=== PATIENT | male | born 1960 | race Caucasian/White ===

== ENCOUNTER 2016-07-06 15:53 | Emergency (ER) | payer BC, OTHER ==
[2016-07-06 16:08] VITALS: BP 154/100
[2016-07-06] MEDS ORDERED: Bacitracin Oint 1 GM U/D Packet TOP ONE (16:21)
[2016-07-06] MEDS ORDERED: Lidocaine 1% 30 ML SDV INJECT ONE (16:21)
[2016-07-06] MEDS ORDERED: Diphtheria,Pertussis(Acell),Tetanus Vaccine 0.5 ML SDV IM ONE (16:23)
--- NOTE | 2016-07-06 16:24 | EDM.PDOC ---
[id number] CUT FINGER Time Seen by Provider: 07/06/16 16:21 Source: Reports: Patient History Limitations: Reports: No limitations - History of Present Illness INITIAL COMMENTS - FREE TEXT/NARRATIVE: This 56 yo male patient reports to the ED with a laceration to his left distal second finger. The patient reports he was cutting things with a knife when the knife slipped and cut his finger. Symptom Onset Date: 07/06/16 Timing: Reports: still present Location, Skin: Reports: upper extremity, left Quality: Reports: Ache, Dull Severity: moderate Known Identified Source: yes Place of Occurrence: home Sick Contact: no Associated Symptoms: Reports: no other symptoms Similar Symptoms Previously: no Recent Medical Care: no - Related Data Allergies Allergy/AdvReac Type Severity Reaction Status Date / Time Penicillins Allergy Intermediate Rash Verified 07/05/13 06:54 Home Meds: Ambulatory Orders Medication Instructions Recorded Confirmed Moexipril [Univasc] 15 mg PO DAILY 07/04/13 07/06/16 Simvastatin [Zocor] 40 mg PO BEDTIME 07/04/13 07/06/16 Past Medical History HEENT History: Reports: Impaired vision - Past Surgical History HEENT Surgical History: Reports: Tonsillectomy Social & Family History - Tobacco Use Smoking Status *Q: Never Smoker Second Hand Smoke Exposure: No - Caffeine Use Caffeine Use: Reports: Coffee, Soda - Alcohol Use Days Per Week of Alcohol Use: 0 - Recreational Drug Use Recreational Drug Use: No ED ROS GENERAL - Review of Systems Review Of Systems: ROS reveals no pertinent complaints other than HPI. ED EXAM, SKIN/RASH Exam: See Below Exam Limited By: No limitations General Appearance: alert, WD/WN, no apparent distress Eye Exam: bilateral eye: EOMI, normal inspection, PERRL Ears: normal external exam, normal canal, hearing grossly normal, normal TMs Nose: normal inspection, normal mucosa, no blood Throat/Mouth: Normal inspection, Normal lips, Normal teeth, Normal gums, Normal oropharynx, Normal voice, No airway compromise Head: atraumatic, normocephalic Neck: normal inspection, supple, non-tender, full range of motion Respiratory/Chest: no respiratory distress, lungs clear, normal breath sounds, no accessory muscle use, chest non-tender Cardiovascular: normal peripheral pulses, regular rate, rhythm, no edema, no gallop, no JVD, no murmur, no rub GI/Abdominal: normal bowel sounds, soft, non tender, no organomegaly, no distention, no abnormal bruit, no mass Extremities: normal range of motion, non-tender, no pedal edema, normal capillary refill Neurological: alert, oriented, CN II-XII intact, normal cognition, normal gait, normal reflexes, no motor/sensory deficits Psychiatric: normal affect, normal mood Skin: Warm, Dry, Normal color, No rash Location, Skin: upper extremity, left Characteristics: linear Associated features: tenderness Lymphatic: no adenopathy ED SKIN PROCEDURES - Laceration/Wound Repair Left Distal Finger Lac/wound length in cm: 1.5 Appearance: subcutaneous Distal NVT: neuro & vascular intact Anesthetic type: local Local anesthesia - Lidocaine (Xylocaine): 1% plain Local anesthetic volume: 2cc Skin prep: chlorhexidine (hibiciens), saline Exploration/Debridement/Repair: wound explored, in a bloodless field, explored to base, no foreign material found Closed with: sutures Suture size: 4-0 # of sutures: 7 Suture type: prolene, interrupted, simple Drain placement: No Sterile dressing applied: nurse Tetanus status addressed: Yes Complications: No Course - Vital Signs Last Recorded V/S: Last Vital Signs Temp 36.4 C 07/06/16 16:07 Pulse 72 07/06/16 16:07 Resp 16 07/06/16 16:07 BP 154/100 H 07/06/16 16:07 Pulse Ox 97 07/06/16 16:07 - Orders/Labs/Meds Orders: Active Orders 24 hr Category Date Time Status Vaccines to be Administered [RC] PER UNIT ROUTINE Care 07/06/16 16:23 Active Meds: Medications Discontinued Medications Generic Name Dose Route Start Last Admin Trade Name Rajanq PRN Reason Stop Dose Admin Bacitracin 1 dose 07/06/16 16:21 07/06/16 16:28 Bacitracin Oint 1 Gm TOP 07/06/16 16:22 1 dose ONETIME ONE Administration Diphtheria/Tetanus/Acell Pertussis 0.5 ml 07/06/16 16:23 07/06/16 16:30 Adacel IM 07/06/16 16:24 0.5 ml .ONCE ONE Administration Lidocaine HCl 30 ml 07/06/16 16:21 07/06/16 16:28 Xylocaine-Mpf 1% INJECT 07/06/16 16:22 30 ml ONETIME ONE Administration Departure - Departure Time of Disposition: 16:51 Disposition: Home, Self-Care 01 Condition: fair Clinical Impression: Laceration of left index finger Instructions: Laceration Care, Adult, [id number] Referrals: Kennedy Willis MD [Primary Care Provider] - Forms: ED Department Discharge Care Plan Goals: The patient was advised of the examination results during the visit. The wound margins were well approximated during the visit. The patient was encouraged to keep the area clean and dry over the next 24 hours. The patient should have the sutures removed in 10 -14 days. If the patient has any additional symptoms or concerns, the patient should follow-up with his primary care facility or return to the ED. - My Orders Last 24 Hours: My Active Orders 07/06/16 16:23 Vaccines to be Administered [RC] PER UNIT ROUTINE - Assessment/Plan Last 24 Hours: My Active Orders 07/06/16 16:23 Vaccines to be Administered [RC] PER UNIT ROUTINE
== END 2016-07-06 17:00 | disposition home or self-care (01) ==
LOC: DL.ED 15:53
DX: S61.211A Laceration without foreign body of left index finger without damage to nail, initial encounter (principal); Z88.0 Allergy status to penicillin; Z79.899 Other long term (current) drug therapy; W26.0XXA Contact with knife, initial encounter
CPT/HCPCS: 12001; 90715; 99283

== ENCOUNTER 2017-02-22 20:32 | Emergency (ER) | payer BC ==
[2017-02-22] MEDS ORDERED: Aspirin 81 MG Tab.Chew PO ONE (20:48)
--- NOTE | 2017-02-22 20:53 | EDM.PDOC ---
ED HPI GENERAL MEDICAL PROBLEM - General Chief Complaint: Chest Pain Stated Complaint: TIGHT CHEST PAINS,SWEATING, [id number] Time Seen by Provider: 02/22/17 20:44 Source of Information: Reports: Patient History Limitations: Reports: No Limitations - History of Present Illness INITIAL COMMENTS - FREE TEXT/NARRATIVE: 56 yo white male c/o chest pain 1.5 hours ago when combining when he became angry and stated chest pain 10/10 lasting 15 mins, w/ bilat upper extremity pain and sweating. now 05/27. PMHx. HTN and Hyperlipidemia and Heartburn Onset: Today Onset Date: 02/22/17 Onset Time: 19:00 Duration: Hour(s): Location: Reports: Chest Quality: Reports: Ache Severity: Moderate Improves with: Reports: Rest Worsens with: Reports: None Context: Reports: Other (Became angry) Associated Symptoms: Reports: No Other Symptoms, Chest Pain Mid-Sternal Pain Score (Numeric/FACES): 2 - Related Data Allergies Allergy/AdvReac Type Severity Reaction Status Date / Time Penicillins Allergy Intermediate Rash Verified 02/22/17 20:38 Home Meds: Home Meds Moexipril [Univasc] 15 mg PO DAILY 07/04/13 [History] Simvastatin [Zocor] 40 mg PO BEDTIME 07/04/13 [History] Past Medical History HEENT History: Reports: Impaired Vision Cardiovascular History: Reports: High Cholesterol, Hypertension Respiratory History: Reports: None Gastrointestinal History: Reports: GERD Genitourinary History: Reports: None Musculoskeletal History: Reports: None Neurological History: Reports: Other (See Below) Other Neuro History: BELLS PSALSY Psychiatric History: Reports: None Endocrine/Metabolic History: Reports: Other (See Below) Other Endocrine/Metabolic History: BORDERLINE DIABETIC Hematologic History: Reports: None Immunologic History: Reports: None Oncologic (Cancer) History: Reports: None Dermatologic History: Reports: None - Infectious Disease History Other Infectious Disease History: UNKNOWN HEALTH HX - Past Surgical History Head Surgeries/Procedures: Reports: None HEENT Surgical History: Reports: None, Tonsillectomy Cardiovascular Surgical History: Reports: None Respiratory Surgical History: Reports: None GI Surgical History: Reports: None Musculoskeletal Surgical History: Reports: None Social & Family History - Tobacco Use Smoking Status *Q: Never Smoker Second Hand Smoke Exposure: No - Caffeine Use Caffeine Use: Reports: Coffee, Soda - Alcohol Use Days Per Week of Alcohol Use: 0 - Recreational Drug Use Recreational Drug Use: No ED ROS GENERAL - Review of Systems Review Of Systems: See Below Constitutional: Reports: No Symptoms HEENT: Reports: No Symptoms Cardiovascular: Reports: Chest Pain Endocrine: Reports: No Symptoms GI/Abdominal: Reports: No Symptoms : Reports: No Symptoms Musculoskeletal: Reports: No Symptoms Skin: Reports: No Symptoms Neurological: Reports: No Symptoms Psychiatric: Reports: No Symptoms Hematologic/Lymphatic: Reports: No Symptoms Immunologic: Reports: No Symptoms ED EXAM, GENERAL - Physical Exam Exam: See Below Exam Limited By: No Limitations General Appearance: Alert, WD/WN, No Apparent Distress Eye Exam: Bilateral Eye: EOMI Ears: Normal External Exam Nose: Normal Inspection Throat/Mouth: Normal Inspection Head: Atraumatic Neck: Normal Inspection Respiratory/Chest: No Respiratory Distress, Lungs Clear, Normal Breath Sounds Cardiovascular: Normal Peripheral Pulses, Regular Rate, Rhythm, No Edema, No JVD Peripheral Pulses: 2+: Radial (L), Radial (R) GI/Abdominal: Normal Bowel Sounds Back Exam: Normal Inspection Extremities: Normal Inspection, Normal Range of Motion Neurological: Alert, Oriented, CN II-XII Intact, Normal Cognition Psychiatric: Normal Affect, Normal Mood Skin Exam: Warm, Dry, Intact, Normal Color, No Rash Lymphatic: No Adenopathy Course - Vital Signs Last Recorded V/S: Last Vital Signs Temp 36.3 C 02/22/17 20:49 Pulse 59 L 02/22/17 21:24 Resp 16 02/22/17 21:24 BP 129/79 02/22/17 21:24 Pulse Ox 95 02/22/17 21:24 - Orders/Labs/Meds Orders: Active Orders 24 hr Category Date Time Status Sodium Chloride 0.9% [Normal Saline] 1,000 ml Med 02/22/17 21:00 Active IV ASDIRECTED Medication Orders Sodium Chloride (Normal Saline) 1,000 mls @ 100 mls/hr IV ASDIRECTED SHEILA Last Admin: 02/22/17 20:59 Dose: 100 mls/hr Labs: Laboratory Tests 02/22/17 02/22/17 02/22/17 Range/Units 20:48 20:48 20:48 WBC 7.6 (5.0-10.0) 10^3/uL RBC 5.36 (4.6-6.2) 10^6/uL Hgb 15.8 (14.0-18.0) g/dL Hct 45.2 (40.0-54.0) % MCV 84.3 (80-100) fL MCH 29.5 (27.0-34.0) pg MCHC 35.0 (33.0-35.0) g/dL Plt Count 255 (150-450) 10^3/uL Neut % (Auto) 49.9 (42.2-75.2) % Lymph % (Auto) 36.7 (20.5-50.1) % [place] % (Auto) 10.1 H (2-8) % Eos % (Auto) 2.6 (1.0-3.0) % Baso % (Auto) 0.7 (0.0-1.0) % D-Dimer, Quantitative < 100 (0-400) ng/mL Sodium 138 (135-145) mmol/L Potassium 3.8 (3.6-5.0) mmol/L Chloride 102 (101-111) mmol/L Carbon Dioxide 26.0 (21.0-31.0) mmol/L Anion Gap 13.8 BUN 17 (7-18) mg/dL Creatinine 1.0 (0.6-1.3) mg/dL Est Cr Clr Drug Dosing 75.32 mL/min Estimated GFR (MDRD) > 60 BUN/Creatinine Ratio 17.00 Glucose 98 (74-105) mg/dL Calcium 9.3 (8.4-10.2) mg/dl Total Bilirubin 0.6 (0.2-1.0) mg/dL AST 24 (10-42) IU/L ALT 31 (10-60) IU/L Alkaline Phosphatase 79 (42-121) IU/L Troponin I < 0.02 (0.00-0.02) ng/ml Total Protein 7.8 (6.7-8.2) g/dl Albumin 5.0 (3.2-5.5) g/dl Globulin 2.8 Albumin/Globulin Ratio 1.79 Meds: Medications Generic Name Dose Route Start Last Admin Trade Name Freq PRN Reason Stop Dose Admin Sodium Chloride 1,000 mls @ 100 mls/hr 02/22/17 21:00 02/22/17 20:59 Normal Saline IV 100 mls/hr ASDIRECTED SHEILA Administration Discontinued Medications Generic Name Dose Route Start Last Admin Trade Name Chance PRN Reason Stop Dose Admin Al Hydroxide/Mg Hydroxide 30 ml 02/22/17 20:54 02/22/17 20:58 Gi Cocktail PO 02/22/17 20:55 30 ml ONETIME ONE Administration Aspirin 324 mg 02/22/17 20:48 02/22/17 20:58 Aspirin PO 02/22/17 20:49 324 mg ONETIME ONE Administration Departure - Departure Time of Disposition: 21:39 Disposition: Home, Self-Care 01 Condition: Good Clinical Impression: Non-cardiac chest pain Instructions: Nonspecific Chest Pain, [id number] Forms: ED Department Discharge Additional Instructions: Rest Increase intake of fluids ( Water / Juice) F/U w/ PCP - My Orders Last 24 Hours: My Active Orders 02/22/17 21:00 Sodium Chloride 0.9% [Normal Saline] 1,000 ml IV ASDIRECTED - Assessment/Plan Last 24 Hours: My Active Orders 02/22/17 21:00 Sodium Chloride 0.9% [Normal Saline] 1,000 ml IV ASDIRECTED
[2017-02-22] MEDS ORDERED: GI Cocktail Oral Solution 30 ML PO ONE (20:54)
[2017-02-22] MEDS ORDERED: Sodium Chloride 0.9% 1,000 ML IV SCH (21:00)
[2017-02-22 21:11] LABS: CHLORIDE,CL 102 mmol/L (101-111); SODIUM,NA 138 mmol/L (135-145)
[2017-02-22 21:25] VITALS: BP 129/79
--- NOTE | 2017-02-23 12:41 | EKG ---
02/22/2017 - DADA ALCARAZ - The 12-lead EKG shows a sinus bradycardia with a ventricular rate of 54. There is an interventricular conduction defect, possibly an atypical right bundle- branch block. There are no acute changes and no other comments are made. [facility] /[id number]
== END 2017-02-22 21:50 | disposition home or self-care (01) ==
LOC: DL.ED 20:32
DX: R07.89 Other chest pain (principal); E78.00 Pure hypercholesterolemia, unspecified; I10 Essential (primary) hypertension; Z88.0 Allergy status to penicillin
CPT/HCPCS: 36415; 71010; 80053; 84484; 85025; 85379; 96360; 99285; A9270; J7030